=== PATIENT | female | born 1935 | race African-American/Black ===

== ENCOUNTER 2021-06-24 11:37 | Emergency (ER) | payer OTHER ==
[~2021-06-24] VITALS: Ht 165.1 cm; Wt 61.8 kg
[2021-06-24] MEDS: BACITRACIN 0.9 GM PACKET OINTMENT TP ONE (12:35)
[2021-06-24] MEDS: LIDOCAINE 1% 10 ML VIAL SQ ONE (12:35)
[2021-06-24 12:52] LABS: GLUCOMETER DEV NAME(LOC) ERT.5; GLUCOSE,POINT OF CARE 126 MG/DL (70-110)
[2021-06-24 13:01] LABS: BASOPHILS % (AUTO) 1.3 % (0.0-2.0); EOSINOPHILS % (AUTO) 2.6 % (1.0-6.0); HEMOGLOBIN 12.5 g/dL (12.0-16.0); LYMPHOCYTES # (AUTO) 1.8 K/uL (1.0-4.8); LYMPHOCYTES % (AUTO) 31.1 % (22.0-44.0); MEAN CORPUSCULAR HEMOGLOBIN 29.5 pg (26.0-34.0); MEAN CORPUSCULAR HGB CONC 32.8 G/dL (31.0-37.0); MEAN CORPUSCULAR VOLUME 90 fL (80-100); MONOCYTES # (AUTO) 0.4 K/uL (0.1-1.0); MONOCYTES % (AUTO) 6.8 % (2.0-9.0); NEUTROPHILS # (AUTO) 3.3 K/uL (1.8-7.7); NEUTROPHILS % (AUTO) 58.2 % (40.0-70.0); PLATELET COUNT (AUTO) 145 K/uL (150-450); RED BLOOD CELL COUNT(AUTO) 4.24 MIL/uL (4.00-5.20); RED CELL DISTRIBUTION WIDTH 13.8 % (11.5-14.5)
[2021-06-24 13:16] LABS: CALCIUM, TOTAL 9.6 mg/dL (8.8-10.5); CREATININE 1.21 mg/dL (0.60-1.30); POTASSIUM 3.9 mmol/L (3.5-5.1)
[2021-06-24 13:23] LABS: ALBUMIN 3.6 g/dL (3.4-5.0); BILIRUBIN,TOTAL 0.3 mg/dL (0.1-1.0); TOTAL PROTEIN, SERUM 7.1 g/dL (6.4-8.2)
[2021-06-24 13:59] VITALS: BP 140/81
== END 2021-06-24 14:32 | disposition home or self-care (01) ==
LOC: EMS 11:37
DX: S01.81XA Laceration without foreign body of other part of head, initial encounter (principal); R55 Syncope and collapse; R42 Dizziness and giddiness; I11.0 Hypertensive heart disease with heart failure; I50.9 Heart failure, unspecified; E05.90 Thyrotoxicosis, unspecified without thyrotoxic crisis or storm; W18.39XA Other fall on same level, initial encounter; Y93.89 Activity, other specified; Y92.89 Other specified places as the place of occurrence of the external cause; Y99.8 Other external cause status
CPT/HCPCS: 12011; 36415; 70450; 80053; 82962; 84484; 85025; 93005; 99285; J3490

== ENCOUNTER 2021-06-30 09:25 | Emergency (ER) | payer OTHER ==
[~2021-06-30] VITALS: Ht 165.1 cm; Wt 70.5 kg
[2021-06-30 09:32] VITALS: BP 144/80
== END 2021-06-30 10:13 | disposition home or self-care (01) ==
LOC: EMS 09:25
DX: S01.81XD Laceration without foreign body of other part of head, subsequent encounter (principal); I50.9 Heart failure, unspecified; Z88.5 Allergy status to narcotic agent; X58.XXXD Exposure to other specified factors, subsequent encounter
CPT/HCPCS: 99281; Z7502

== ENCOUNTER 2023-01-08 10:34 | Emergency (ER) | payer OTHER ==
[~2023-01-08] VITALS: Ht 162.6 cm; Wt 63.6 kg
[2023-01-08 10:36] VITALS: BP 143/83; PULSE 76; RESP 18; TEMP 98
[2023-01-08] MEDS ORDERED: HYDR12.54 PO (10:39)
[2023-01-08 12:32] LABS: APPEARANCE,URINE CLEAR (CLEAR); BILIRUBIN,URINE NEGATIVE (NEGATIVE); GLUCOSE, URINE (UA) NEGATIVE (NEGATIVE); KETONES,URINE NEGATIVE (NEGATIVE); LEUKOCYTE ESTERASE ,URINE NEGATIVE (NEGATIVE); NITRATE,URINE NEGATIVE (NEGATIVE); OCCULT BLOOD,URINE NEGATIVE (NEGATIVE); PH,URINE 7.5 (5.0-8.0); PROTEIN,URINE TRACE mg/dL (NEGATIVE); SPECIFIC GRAVITIY, URINE 1.021 (1.003-1.030); UROBILINOGEN,URINE <=1.0 mg/dL (<=1.0)
== END 2023-01-08 13:19 | disposition home or self-care (01) ==
LOC: EMS 10:34
DX: R60.0 Localized edema (principal); I50.9 Heart failure, unspecified; Z88.5 Allergy status to narcotic agent; Z88.8 Allergy status to other drugs, medicaments and biological substances
CPT/HCPCS: 81003; 93970; 99284

== ENCOUNTER 2023-01-22 07:42 | Inpatient (IN) | payer OTHER ==
[~2023-01-22] VITALS: Ht 154.9 cm; Wt 71.0 kg
[~2023-01-22 07:42] MED LIST: HYDR12.54 PO
[2023-01-22] MEDS ORDERED: ONDANSETRON HCL 4 MG/2 ML VIAL IVP ONE (08:00)
[2023-01-22] MEDS ORDERED: SODIUM CHLORIDE 0.9% 500 ML IV ONE (08:00)
[2023-01-22 08:29] LABS: BASOPHILS % (AUTO) 0.2 % (0.0-2.0); EOSINOPHILS % (AUTO) 0 % (1.0-6.0); HEMATOCRIT 38.8 % (36-46); HEMOGLOBIN 12.8 g/dL (12.0-16.0); LYMPHOCYTES # (AUTO) 0.5 K/uL (1.0-4.8); LYMPHOCYTES % (AUTO) 4.7 % (22.0-44.0); MEAN CORPUSCULAR HEMOGLOBIN 29.9 pg (26.0-34.0); MEAN CORPUSCULAR VOLUME 91 fL (80-100); MONOCYTES # (AUTO) 0.7 K/uL (0.1-1.0); MONOCYTES % (AUTO) 6.2 % (2.0-9.0); NEUTROPHILS # (AUTO) 9.6 K/uL (1.8-7.7); PLATELET COUNT (AUTO) 151 K/uL (150-450); RED BLOOD CELL COUNT(AUTO) 4.28 MIL/uL (4.00-5.20)
[2023-01-22 08:30] LABS: NEUTROPHILS % (AUTO) 88.9 % (40.0-70.0)
[2023-01-22 08:37] LABS: CALCIUM, TOTAL 9.6 mg/dL (8.8-10.5); CREATININE 1.4 mg/dL (0.60-1.30)
[2023-01-22 08:40] LABS: PROTHROMBIN TIME 10.9 SEC (9.4-11.6)
[2023-01-22 08:56] LABS: PLATELET MORPHOLOGY COMMENT GIANT PLTS PRESENT
[2023-01-22 09:00] LABS: ALBUMIN 4.1 g/dL (3.4-5.0); BILIRUBIN,TOTAL 0.5 mg/dL (0.1-1.0); TOTAL PROTEIN, SERUM 8.4 g/dL (6.4-8.2)
[2023-01-22] MEDS ORDERED: FUROSEMIDE 20 MG/2 ML VIAL IVP ONE (11:15)
[2023-01-22] MEDS ORDERED: NITROGLYCERIN 2% (1 GM=INCH) OINTMENT PACKET TP ONE (11:15)
[2023-01-22] MEDS ORDERED: BISACODYL 10 MG RECTAL RECTAL SUPPOSITORY PR PRN (12:00)
[2023-01-22] MEDS ORDERED: MAGNESIUM HYDROXIDE SUSPENSION 30 ML UDCUP PO PRN (12:00)
[2023-01-22] MEDS ORDERED: ONDANSETRON HCL 4 MG/2 ML VIAL IVP PRN (12:00)
[2023-01-22] MEDS ORDERED: ZOLPIDEM TARTRATE 5 MG TABLET PO PRN (12:00)
[2023-01-22] MEDS: HEPARIN SODIUM,PORCINE 5,000 UNITS/ML VIAL SQ SCH ×2 (15:43→23:44)
[2023-01-22 18:20] VITALS: BP 154/83; PULSE 83; RESP 18; TEMP 99.4
[2023-01-22 19:40] VITALS: BP 156/69; PULSE 78; RESP 16; TEMP 98.9
[2023-01-22] MEDS: CARVEDILOL 6.25 MG TABLET PO SCH (20:58)
[2023-01-22] MEDS: DOCUSATE SODIUM 100 MG CAPSULE PO SCH (20:58)
[2023-01-22] MEDS: FUROSEMIDE 20 MG/2 ML VIAL IVP SCH (20:58)
[2023-01-23 00:16] VITALS: BP 143/67; PULSE 69; RESP 19; TEMP 99.5
[2023-01-23 06:02] LABS: EOSINOPHILS % (AUTO) 0 % (1.0-6.0); HEMATOCRIT 42.5 % (36-46); HEMOGLOBIN 13.9 g/dL (12.0-16.0); LYMPHOCYTES % (AUTO) 5.2 % (22.0-44.0); MEAN CORPUSCULAR HEMOGLOBIN 29.2 pg (26.0-34.0); MEAN CORPUSCULAR HGB CONC 32.8 G/dL (31.0-37.0); MEAN CORPUSCULAR VOLUME 89 fL (80-100); MONOCYTES # (AUTO) 1.1 K/uL (0.1-1.0); MONOCYTES % (AUTO) 5.9 % (2.0-9.0); PLATELET COUNT (AUTO) 149 K/uL (150-450); RED BLOOD CELL COUNT(AUTO) 4.77 MIL/uL (4.00-5.20); RED CELL DISTRIBUTION WIDTH 14.2 % (11.5-14.5)
[2023-01-23 06:07] LABS: CALCIUM, TOTAL 9.6 mg/dL (8.8-10.5); CREATININE 1.3 mg/dL (0.60-1.30); POTASSIUM 3.7 mmol/L (3.5-5.1)
[2023-01-23 06:43] LABS: NEUTROPHILS % (AUTO) 88.9 % (40.0-70.0)
[2023-01-23 07:51] VITALS: BP 152/73; PULSE 70; RESP 18; TEMP 99
[2023-01-23] MEDS: ASPIRIN 81 MG DR TABLET PO SCH (08:48)
[2023-01-23] MEDS: CARVEDILOL 6.25 MG TABLET PO SCH ×2 (08:48→21:06)
[2023-01-23] MEDS: PANTOPRAZOLE SODIUM 40 MG DR TABLET PO SCH (08:48)
[2023-01-23] MEDS: DOCUSATE SODIUM 100 MG CAPSULE PO SCH ×2 (08:48→21:06)
[2023-01-23] MEDS: HEPARIN SODIUM,PORCINE 5,000 UNITS/ML VIAL SQ SCH ×2 (08:49→16:35)
[2023-01-23] MEDS: FUROSEMIDE 20 MG/2 ML VIAL IVP SCH ×2 (08:49→20:56)
[2023-01-23 12:00] VITALS: BP 107/58; PULSE 68; RESP 18; TEMP 97.5
[2023-01-23] MEDS ORDERED: SODIUM CHLORIDE 0.9% 500 ML IV ONE (14:07)
[2023-01-23] MEDS: PIPERACILLIN SODIUM/TAZOBACTAM 2.25 GM in DEXTROSE 5%-WATER 50 ML IV SCH ×2 (14:27→20:56)
[2023-01-23 15:30] VITALS: BP 108/52; PULSE 71; RESP 20; TEMP 98.6
[2023-01-23 19:17] LABS: APPEARANCE,URINE CLEAR (CLEAR); BILIRUBIN,URINE NEGATIVE (NEGATIVE); GLUCOSE, URINE (UA) NEGATIVE (NEGATIVE); KETONES,URINE NEGATIVE (NEGATIVE); LEUKOCYTE ESTERASE ,URINE NEGATIVE (NEGATIVE); NITRATE,URINE NEGATIVE (NEGATIVE); OCCULT BLOOD,URINE NEGATIVE (NEGATIVE); PROTEIN,URINE 30-70 mg/dL (NEGATIVE); SPECIFIC GRAVITIY, URINE 1.011 (1.003-1.030); UROBILINOGEN,URINE <=1.0 mg/dL (<=1.0)
[2023-01-23 19:42] VITALS: BP 110/58; PULSE 78; RESP 20; TEMP 98.3
[2023-01-24 00:19] VITALS: BP 97/49; PULSE 74; RESP 20; TEMP 97.9
[2023-01-24] MEDS: HEPARIN SODIUM,PORCINE 5,000 UNITS/ML VIAL SQ SCH ×3 (00:23→17:08)
[2023-01-24] MEDS: PIPERACILLIN SODIUM/TAZOBACTAM 2.25 GM in DEXTROSE 5%-WATER 50 ML IV SCH ×3 (02:49→19:12)
[2023-01-24 05:45] VITALS: BP 101/49; PULSE 74; RESP 20; TEMP 96.9
[2023-01-24 07:08] LABS: BASOPHILS % (AUTO) 0.1 % (0.0-2.0); EOSINOPHILS % (AUTO) 0.1 % (1.0-6.0); HEMATOCRIT 39.3 % (36-46); HEMOGLOBIN 12.7 g/dL (12.0-16.0); LYMPHOCYTES # (AUTO) 1.6 K/uL (1.0-4.8); LYMPHOCYTES % (AUTO) 9.5 % (22.0-44.0); MEAN CORPUSCULAR HGB CONC 32.4 G/dL (31.0-37.0); MEAN CORPUSCULAR VOLUME 90 fL (80-100); MONOCYTES % (AUTO) 5.7 % (2.0-9.0); NEUTROPHILS # (AUTO) 14.5 K/uL (1.8-7.7); NEUTROPHILS % (AUTO) 84.6 % (40.0-70.0); PLATELET COUNT (AUTO) 133 K/uL (150-450); RED BLOOD CELL COUNT(AUTO) 4.38 MIL/uL (4.00-5.20); RED CELL DISTRIBUTION WIDTH 14.1 % (11.5-14.5)
[2023-01-24 07:19] LABS: CALCIUM, TOTAL 9.2 mg/dL (8.8-10.5); CREATININE 2.22 mg/dL (0.60-1.30); POTASSIUM 3.5 mmol/L (3.5-5.1)
[2023-01-24] MEDS ORDERED: MEBROFENIN TC99M/MCL ISOTOPE 1 EA INJ INJ ONE (08:40)
[2023-01-24] MEDS: ASPIRIN 81 MG DR TABLET PO SCH (09:00)
[2023-01-24] MEDS: PANTOPRAZOLE SODIUM 40 MG DR TABLET PO SCH (09:00)
[2023-01-24] MEDS: DOCUSATE SODIUM 100 MG CAPSULE PO SCH ×2 (09:00→21:43)
[2023-01-24] MEDS: CARVEDILOL 6.25 MG TABLET PO SCH ×2 (09:00→21:43)
[2023-01-24 10:23] VITALS: BP 112/59; PULSE 63; RESP 20; TEMP 97.8
[2023-01-24] MEDS ORDERED: PERFLUTREN PROTEIN-A MICROSPHERES 0.22 MG/ML 3 ML VIAL IVP ONE ×2 (10:30→11:30)
[2023-01-24] MEDS ORDERED: SODIUM CHLORIDE 0.9% 250 ML IV ONE (11:15)
[2023-01-24 15:35] VITALS: BP 118/62; PULSE 78; RESP 18; TEMP 98
[2023-01-24 20:25] VITALS: BP 127/60; PULSE 89; RESP 24; TEMP 98.1
[2023-01-25] VITALS (7 sets, daily range): BP systolic 101–123; BP diastolic 52–64; PULSE 59–69; RESP 16–24; TEMP 97.7–99
[2023-01-25] MEDS: HEPARIN SODIUM,PORCINE 5,000 UNITS/ML VIAL SQ SCH ×3 (01:01→16:41)
[2023-01-25] MEDS: PIPERACILLIN SODIUM/TAZOBACTAM 2.25 GM in DEXTROSE 5%-WATER 50 ML IV SCH ×3 (04:40→20:18)
[2023-01-25 06:45] LABS: BASOPHILS % (AUTO) 0.2 % (0.0-2.0); EOSINOPHILS % (AUTO) 0.5 % (1.0-6.0); HEMATOCRIT 38.4 % (36-46); HEMOGLOBIN 12.6 g/dL (12.0-16.0); LYMPHOCYTES # (AUTO) 1.4 K/uL (1.0-4.8); LYMPHOCYTES % (AUTO) 12.8 % (22.0-44.0); MEAN CORPUSCULAR HEMOGLOBIN 29.3 pg (26.0-34.0); MEAN CORPUSCULAR HGB CONC 32.9 G/dL (31.0-37.0); MEAN CORPUSCULAR VOLUME 89 fL (80-100); MONOCYTES % (AUTO) 9.2 % (2.0-9.0); NEUTROPHILS # (AUTO) 8.3 K/uL (1.8-7.7); NEUTROPHILS % (AUTO) 77.3 % (40.0-70.0); PLATELET COUNT (AUTO) 148 K/uL (150-450); RED BLOOD CELL COUNT(AUTO) 4.31 MIL/uL (4.00-5.20)
[2023-01-25 07:03] LABS: CALCIUM, TOTAL 9.5 mg/dL (8.8-10.5); CREATININE 1.79 mg/dL (0.60-1.30); POTASSIUM 3.2 mmol/L (3.5-5.1)
[2023-01-25] MEDS: ACETAMINOPHEN 325 MG TABLET PO PRN (08:02)
[2023-01-25] MEDS: DOCUSATE SODIUM 100 MG CAPSULE PO SCH ×2 (08:03→20:52)
[2023-01-25] MEDS: CARVEDILOL 6.25 MG TABLET PO SCH ×2 (08:03→20:52)
[2023-01-25] MEDS: PANTOPRAZOLE SODIUM 40 MG DR TABLET PO SCH (08:03)
[2023-01-25] MEDS: ASPIRIN 81 MG DR TABLET PO SCH (08:03)
[2023-01-25] MEDS ORDERED: POTASSIUM CHL 10 MEQ/WATER 50 ML IV PRN (09:45)
[2023-01-25] MEDS ORDERED: POTASSIUM CHLORIDE 20 MEQ ER TABLET PO PRN (09:45)
[2023-01-25] MEDS: URSODIOL 300 MG CAPSULE PO SCH ×2 (11:14→20:52)
[2023-01-25] MEDS ORDERED: SODIUM CHLORIDE 0.9% 1,000 ML IV ONE (13:15)
[2023-01-26] MEDS: HEPARIN SODIUM,PORCINE 5,000 UNITS/ML VIAL SQ SCH ×3 (00:16→17:24)
[2023-01-26] MEDS: PIPERACILLIN SODIUM/TAZOBACTAM 2.25 GM in DEXTROSE 5%-WATER 50 ML IV SCH ×3 (03:01→20:21)
[2023-01-26 04:17] VITALS: BP 112/54; PULSE 59; RESP 19; TEMP 98.3
[2023-01-26 07:11] VITALS: BP 113/55; PULSE 54; RESP 18; TEMP 98.5
[2023-01-26] MEDS: CARVEDILOL 6.25 MG TABLET PO SCH (09:45)
[2023-01-26] MEDS: DOCUSATE SODIUM 100 MG CAPSULE PO SCH ×2 (09:45→20:12)
[2023-01-26] MEDS: PANTOPRAZOLE SODIUM 40 MG DR TABLET PO SCH (09:46)
[2023-01-26] MEDS: ASPIRIN 81 MG DR TABLET PO SCH (09:46)
[2023-01-26] MEDS: URSODIOL 300 MG CAPSULE PO SCH ×2 (09:46→20:12)
[2023-01-26 10:55] VITALS: BP 118/58; PULSE 60; RESP 19; TEMP 98
[2023-01-26] MEDS ORDERED: SODIUM CHLORIDE 0.9% 500 ML IV ONE (14:15)
[2023-01-26 15:43] VITALS: BP 118/52; PULSE 63; RESP 18; TEMP 98.2
[2023-01-26 17:04] LABS: BASOPHILS % (AUTO) 0.4 % (0.0-2.0); EOSINOPHILS % (AUTO) 2.6 % (1.0-6.0); HEMATOCRIT 38.9 % (36-46); HEMOGLOBIN 12.8 g/dL (12.0-16.0); LYMPHOCYTES # (AUTO) 1.1 K/uL (1.0-4.8); LYMPHOCYTES % (AUTO) 15.1 % (22.0-44.0); MEAN CORPUSCULAR HEMOGLOBIN 29.5 pg (26.0-34.0); MEAN CORPUSCULAR HGB CONC 32.8 G/dL (31.0-37.0); MEAN CORPUSCULAR VOLUME 90 fL (80-100); MONOCYTES % (AUTO) 10.8 % (2.0-9.0); NEUTROPHILS % (AUTO) 71.1 % (40.0-70.0); PLATELET COUNT (AUTO) 169 K/uL (150-450); RED BLOOD CELL COUNT(AUTO) 4.33 MIL/uL (4.00-5.20)
[2023-01-26 17:06] LABS: MONOCYTES # (AUTO) 0.9 K/uL (0.1-1.0); NEUTROPHILS # (AUTO) 5.4 K/uL (1.8-7.7)
[2023-01-26] MEDS: CARVEDILOL 3.125 MG TABLET PO SCH (20:11)
[2023-01-26] MEDS: ACETAMINOPHEN 325 MG TABLET PO PRN (20:13)
[2023-01-26] MEDS: DICLOFENAC SODIUM 1% 100 GM GEL [4GM] TP SCH (22:09)
[2023-01-26 22:52] VITALS: BP 129/61; PULSE 69; RESP 18; TEMP 98.7
[2023-01-27 01:20] VITALS: BP 126/66; PULSE 66; RESP 18; TEMP 98.1
[2023-01-27] MEDS: PIPERACILLIN SODIUM/TAZOBACTAM 2.25 GM in DEXTROSE 5%-WATER 50 ML IV SCH ×2 (03:52→11:15)
[2023-01-27 05:35] VITALS: BP 118/54; PULSE 56; RESP 18; TEMP 98.1
[2023-01-27 07:25] LABS: BASOPHILS % (AUTO) 0.7 % (0.0-2.0); EOSINOPHILS % (AUTO) 4.4 % (1.0-6.0); HEMATOCRIT 37.9 % (36-46); HEMOGLOBIN 12.6 g/dL (12.0-16.0); LYMPHOCYTES # (AUTO) 1.8 K/uL (1.0-4.8); LYMPHOCYTES % (AUTO) 22.8 % (22.0-44.0); MEAN CORPUSCULAR HEMOGLOBIN 29.7 pg (26.0-34.0); MEAN CORPUSCULAR HGB CONC 33.1 G/dL (31.0-37.0); MEAN CORPUSCULAR VOLUME 90 fL (80-100); MONOCYTES # (AUTO) 1.1 K/uL (0.1-1.0); MONOCYTES % (AUTO) 14.6 % (2.0-9.0); NEUTROPHILS # (AUTO) 4.5 K/uL (1.8-7.7); NEUTROPHILS % (AUTO) 57.5 % (40.0-70.0); PLATELET COUNT (AUTO) 152 K/uL (150-450); RED BLOOD CELL COUNT(AUTO) 4.24 MIL/uL (4.00-5.20); RED CELL DISTRIBUTION WIDTH 14.2 % (11.5-14.5)
[2023-01-27 07:36] LABS: CALCIUM, TOTAL 9.1 mg/dL (8.8-10.5); CREATININE 1.32 mg/dL (0.60-1.30); POTASSIUM 3.8 mmol/L (3.5-5.1)
[2023-01-27 07:38] VITALS: BP 126/58; PULSE 57; RESP 16; TEMP 97.9
[2023-01-27 07:39] LABS: MAGNESIUM 2.5 mg/dL (1.80-2.40); PHOSPHORUS 2.6 mg/dL (2.5-4.9)
[2023-01-27 08:59] LABS: ALBUMIN 2.2 g/dL (3.4-5.0); BILIRUBIN,DIRECT 0.2 mg/dL (0.00-0.20); BILIRUBIN,TOTAL 0.4 mg/dL (0.1-1.0); TOTAL PROTEIN, SERUM 6.9 g/dL (6.4-8.2)
[2023-01-27] MEDS: DICLOFENAC SODIUM 1% 100 GM GEL [4GM] TP SCH (09:20)
[2023-01-27] MEDS: HEPARIN SODIUM,PORCINE 5,000 UNITS/ML VIAL SQ SCH ×2 (09:21)
[2023-01-27] MEDS: URSODIOL 300 MG CAPSULE PO SCH (09:21)
[2023-01-27] MEDS: PANTOPRAZOLE SODIUM 40 MG DR TABLET PO SCH (09:21)
[2023-01-27] MEDS: DOCUSATE SODIUM 100 MG CAPSULE PO SCH (09:21)
[2023-01-27] MEDS: CARVEDILOL 3.125 MG TABLET PO SCH (09:21)
[2023-01-27] MEDS: ASPIRIN 81 MG DR TABLET PO SCH (09:21)
[2023-01-27] MEDS ORDERED: AMOX1TAB15 PO (11:28)
[2023-01-27] MEDS ORDERED: CARV3 PO (11:28)
[2023-01-27] MEDS ORDERED: ASPI-1444 PO (11:28)
[2023-01-27] MEDS ORDERED: URSO300C4 PO ×2 (11:28→11:31)
[2023-01-27] MEDS ORDERED: CEFU500T41 PO (11:31)
[2023-01-27 12:31] VITALS: BP 121/62; PULSE 58; RESP 18; TEMP 97.9
[2023-01-27 14:45] VITALS: BP 124/70; PULSE 84; RESP 17; TEMP 97.8
[2023-01-27] MEDS ORDERED: PIPERACILLIN SODIUM/TAZOBACTAM 2.25 GM in DEXTROSE 5%-WATER 50 ML IV SCH (18:00)
== END 2023-01-27 16:12 | disposition home or self-care (01) | DRG 444 ==
LOC: EMS 07:42 → 5S 15:35
PROVIDERS: ADMIT Internal Medicine; ATTEND Internal Medicine
DX: K80.00 Calculus of gallbladder with acute cholecystitis without obstruction (principal); I50.33 Acute on chronic diastolic (congestive) heart failure; I13.0 Hypertensive heart and chronic kidney disease with heart failure and stage 1 through stage 4 chronic kidney disease, or unspecified chronic kidney disease; N17.9 Acute kidney failure, unspecified; M79.671 Pain in right foot; N18.9 Chronic kidney disease, unspecified; M25.569 Pain in unspecified knee; D72.829 Elevated white blood cell count, unspecified; E87.6 Hypokalemia; Z88.8 Allergy status to other drugs, medicaments and biological substances; Z88.5 Allergy status to narcotic agent; Z79.899 Other long term (current) drug therapy
CPT/HCPCS: 71045; 76700; 78226; 80048; 80053; 80076; 81003; 82550; 83735; 83880; 84100; 84132; 84484; 85025; 85610; 85730; 93005; 93306; 97162; 99285; A9537; C8924; J1644; J1940; J2405; J2543; J7030; J7040; J7060; Q9967; 36415-L1; 36415-TC

== ENCOUNTER 2023-03-17 11:18 | Emergency (ER) | payer OTHER ==
[~2023-03-17] VITALS: Ht 162.6 cm; Wt 70.9 kg
[~2023-03-17 11:18] MED LIST changes: +ASPI-1444 PO; +CARV3 PO; +CEFU500T41 PO; -HYDR12.54 PO; +URSO300C4 PO
[2023-03-17 11:46] VITALS: TEMP 98.2
[2023-03-17] MEDS ORDERED: FURO-152 PO (11:51)
[2023-03-17 13:05] LABS: BASOPHILS % (AUTO) 1.3 % (0.0-2.0); EOSINOPHILS % (AUTO) 5.3 % (1.0-6.0); HEMATOCRIT 32.7 % (36-46); HEMOGLOBIN 10.5 g/dL (12.0-16.0); LYMPHOCYTES % (AUTO) 38.4 % (22.0-44.0); MEAN CORPUSCULAR HGB CONC 32.3 G/dL (31.0-37.0); MEAN CORPUSCULAR VOLUME 90 fL (80-100); MONOCYTES # (AUTO) 0.6 K/uL (0.1-1.0); MONOCYTES % (AUTO) 10.7 % (2.0-9.0); NEUTROPHILS # (AUTO) 2.4 K/uL (1.8-7.7); NEUTROPHILS % (AUTO) 44.3 % (40.0-70.0); PLATELET COUNT (AUTO) 156 K/uL (150-450); RED BLOOD CELL COUNT(AUTO) 3.64 MIL/uL (4.00-5.20); RED CELL DISTRIBUTION WIDTH 14.8 % (11.5-14.5); WHITE BLOOD COUNT (AUTO) 5.3 K/uL (4.5-11.0)
[2023-03-17 13:23] LABS: ANION GAP 6 mmol/L (8-16); CALCIUM, TOTAL 9.2 mg/dL (8.8-10.5); CARBON DIOXIDE 30 mmol/L (22-29); CHLORIDE 105 mmol/L (98-107); CREATININE 1.06 mg/dL (0.60-1.30); GLOMERULAR FILTR. RATE CALC 59 mL/min (>60); GLUCOSE,RANDOM 84 mg/dL (70-110); POTASSIUM 3.7 mmol/L (3.5-5.1); SODIUM SERUM 141 mmol/L (136-145); UREA NITROGEN, BLOOD 13 mg/dL (7-18)
[2023-03-17 13:24] LABS: B-TYPE NATRIURETIC PEPTIDE 40 pg/mL (0-100)
[2023-03-17 13:28] LABS: ALKALINE PHOSPHATASE 53 U/L (46-116); ASPARTATE AMINOTRANSFERASE 18 U/L (15-37); BILIRUBIN,TOTAL 0.4 mg/dL (0.1-1.0); TOTAL PROTEIN, SERUM 6.8 g/dL (6.4-8.2)
[2023-03-17 13:31] LABS: TROPONIN I-HIGH SENSITIVITY 11 ng/L (<51)
[2023-03-17 13:40] LABS: ALANINE AMINOTRANSFERASE < 6 U/L (12-78)
[2023-03-17 14:00] VITALS: BP 112/50; PULSE 59; RESP 18
[2023-03-17] MEDS ORDERED: DICL100G60 TP (14:25)
[2023-03-17 15:26] LABS: APPEARANCE,URINE HAZY (CLEAR); BILIRUBIN,URINE NEGATIVE (NEGATIVE); COLOR,URINE YELLOW (YELLOW); GLUCOSE, URINE (UA) NEGATIVE (NEGATIVE); KETONES,URINE NEGATIVE (NEGATIVE); LEUKOCYTE ESTERASE ,URINE LARGE (NEGATIVE); NITRATE,URINE POSITIVE (NEGATIVE); OCCULT BLOOD,URINE NEGATIVE (NEGATIVE); PROTEIN,URINE TRACE mg/dL (NEGATIVE); SPECIFIC GRAVITIY, URINE 1.017 (1.003-1.030); UROBILINOGEN,URINE <=1.0 mg/dL (<=1.0)
[2023-03-17 15:42] LABS: SQUAMOUS EPITHELIAL CELL,UR Few /LPF (None Seen)
[2023-03-17 15:43] LABS: RBC,URINE None Seen /HPF (0-2); WBC,URINE 26-50 /HPF (0-5)
[2023-03-17 15:44] LABS: BACTERIA,URINE Moderate /HPF (None Seen)
== END 2023-03-17 14:51 | disposition home or self-care (01) ==
LOC: EMS 11:20
DX: R34 Anuria and oliguria (principal); I13.0 Hypertensive heart and chronic kidney disease with heart failure and stage 1 through stage 4 chronic kidney disease, or unspecified chronic kidney disease; I50.9 Heart failure, unspecified; N18.9 Chronic kidney disease, unspecified; M17.0 Bilateral primary osteoarthritis of knee; Z88.5 Allergy status to narcotic agent; Z88.8 Allergy status to other drugs, medicaments and biological substances
CPT/HCPCS: 71045; 80053; 81001; 83880; 84484; 85025; 87086; 87186; 93005; 99285; 36415-L1; 36415-TC

== ENCOUNTER 2024-01-02 11:11 | Emergency (ER) | payer OTHER ==
[~2024-01-02] VITALS: Ht 165.1 cm; Wt 70.5 kg
[~2024-01-02 11:11] MED LIST changes: -ASPI-1444 PO; -CEFU500T41 PO; +DICL100G60 TP; +FURO-152 PO
[2024-01-02 11:12] VITALS: TEMP 99.2
[2024-01-02] MEDS ORDERED: BUME2TAB5 PO (11:14)
[2024-01-02] MEDS: ACETAMINOPHEN 500 MG TABLET PO ONE (12:11)
[2024-01-02] MEDS: LIDOCAINE 5% TRANSDERMAL PATCH TD ONE (12:11)
[2024-01-02] MEDS ORDERED: ACET-3385 PO (12:48)
[2024-01-02] MEDS ORDERED: LIDO700A15 TP (12:48)
[2024-01-02 13:10] VITALS: BP 129/88; PULSE 72; RESP 18
== END 2024-01-02 15:07 | disposition home or self-care (01) ==
LOC: EMS 11:11
DX: M17.12 Unilateral primary osteoarthritis, left knee (principal); M25.511 Pain in right shoulder; M54.2 Cervicalgia; Z88.5 Allergy status to narcotic agent; Z88.8 Allergy status to other drugs, medicaments and biological substances
CPT/HCPCS: 99284; 73030-TC; 73562-TC; Z7502; Z7610

== ENCOUNTER 2024-02-27 13:59 | Emergency (ER) | payer OTHER ==
[~2024-02-27] VITALS: Ht 167.6 cm; Wt 70.0 kg
[~2024-02-27 13:59] MED LIST changes: +ACET-3385 PO; -CARV3 PO; +CEPH-558 PO; -FURO-152 PO; +LIDO700A15 TP
[2024-02-27 14:07] VITALS: BP 119/49; PULSE 70; RESP 16; TEMP 98.4
[2024-02-27] MEDS ORDERED: ACET-66 PO (14:07)
[2024-02-27] MEDS ORDERED: BUME2TAB5 PO (14:07)
[2024-02-27] MEDS ORDERED: CEPH500C2 PO (14:07)
[2024-02-27] MEDS: ACETAMINOPHEN 325 MG TABLET PO ONE (15:02)
[2024-02-27] MEDS: KETOROLAC TROMETHAMINE 30 MG/ML VIAL IM ONE (15:02)
[2024-02-27] MEDS: LIDOCAINE 5% TRANSDERMAL PATCH TD ONE (15:25)
== END 2024-02-27 15:48 | disposition home or self-care (01) ==
LOC: EMS 14:05
DX: M13.862 Other specified arthritis, left knee (principal); Z88.5 Allergy status to narcotic agent; Z88.8 Allergy status to other drugs, medicaments and biological substances
CPT/HCPCS: 99283; 73562; J1885

== ENCOUNTER 2024-06-26 10:57 | Emergency (ER) | payer OTHER ==
[~2024-06-26] VITALS: Ht 162.6 cm; Wt 68.2 kg
[~2024-06-26 10:57] MED LIST changes: -ACET-3385 PO; +ACET-66 PO; +BUME2TAB5 PO; -CEPH-558 PO; +CEPH500C2 PO; -LIDO700A15 TP
[2024-06-26 11:11] VITALS: BP 129/61; PULSE 74; RESP 18; TEMP 98.4; O2SAT 96
[2024-06-26] MEDS: KETOROLAC TROMETHAMINE 30 MG/ML VIAL IM ONE (12:01)
[2024-06-26] MEDS ORDERED: IBUP-1492 PO (12:59)
== END 2024-06-26 13:10 | disposition home or self-care (01) ==
LOC: EMS 10:57
DX: S42.031A Displaced fracture of lateral end of right clavicle, initial encounter for closed fracture (principal); Z88.5 Allergy status to narcotic agent; Z88.8 Allergy status to other drugs, medicaments and biological substances; Z79.899 Other long term (current) drug therapy; W01.0XXA Fall on same level from slipping, tripping and stumbling without subsequent striking against object, initial encounter; Y93.89 Activity, other specified; Y92.89 Other specified places as the place of occurrence of the external cause; Y99.8 Other external cause status
CPT/HCPCS: 99284; 73000; 73030; 96372; J1885

== ENCOUNTER 2024-09-11 11:31 | Emergency (ER) | payer OTHER ==
[~2024-09-11] VITALS: Ht 162.6 cm; Wt 68.2 kg
[~2024-09-11 11:31] MED LIST changes: +IBUP-1492 PO
[2024-09-11 11:38] VITALS: TEMP 98.6
[2024-09-11 12:29] VITALS: BP 128/62; PULSE 74; RESP 16; O2SAT 99
[2024-09-11] MEDS ORDERED: DICL100G60 TP (12:55)
[2024-09-11] MEDS: ACETAMINOPHEN 500 MG TABLET PO ONE (12:59)
[2024-09-11] MEDS: LIDOCAINE 5% TRANSDERMAL PATCH TD ONE (13:00)
== END 2024-09-11 13:54 | disposition home or self-care (01) ==
LOC: EMS 11:35
DX: S16.1XXA Strain of muscle, fascia and tendon at neck level, initial encounter (principal); I50.9 Heart failure, unspecified; Z88.5 Allergy status to narcotic agent; Z88.8 Allergy status to other drugs, medicaments and biological substances; Z79.899 Other long term (current) drug therapy; X58.XXXA Exposure to other specified factors, initial encounter; Y93.89 Activity, other specified; Y92.89 Other specified places as the place of occurrence of the external cause; Y99.8 Other external cause status
CPT/HCPCS: 99283